=== PATIENT | male | born 1950 | race Caucasian/White ===

== ENCOUNTER 2022-11-23 15:42 | Outpatient (CLI) | payer BC | END 2022-11-23 15:43 | disposition home or self-care (01) | LOC: SCSRAD 15:42 | PROVIDERS: ATTEND Nurse Practitioner Family | DX: R05.3 Chronic cough (principal) | CPT/HCPCS: 71046 ==

== ENCOUNTER 2024-02-25 13:55 | Inpatient (IN) | payer BC, MEDICARE ==
[2024-02-25 15:01] VITALS: BMI 23.3
[2024-02-25] MEDS ORDERED: Ondansetron ODT 4 MG TAB PO PRN (15:07)
[2024-02-25] MEDS ORDERED: Acetaminophen/Codeine 30-300mg Tablet PO PRN (15:07)
[2024-02-25] MEDS ORDERED: Acetaminophen 325 MG TAB PO PRN (15:07)
[2024-02-25] MEDS ORDERED: Acetaminophen 650 MG Suppository PR PRN (15:07)
[2024-02-25] MEDS ORDERED: Ondansetron PF 4 MG/2 ML Vial IVP PRN (15:07)
[2024-02-25] MEDS ORDERED: Morphine 2 MG/ML VIAL SLOW IVP PRN (15:30)
[2024-02-25] MEDS ORDERED: Ipratropium/Albuterol 3 ML NEB NEB PRN (15:50)
[2024-02-25] MEDS: Acetaminophen 325 MG TAB PO SCH ×2 (15:55→16:36)
[2024-02-25] MEDS: cefTRIAXone\\ROCEPHIN 1 GM in Sodium Chloride 0.9% 100 ML IVPB SCH ×2 (15:56→16:35)
[2024-02-25] MEDS: Guaifenesin DM 100-10/5 ML UDCUP PO PRN (15:56)
[2024-02-25] MEDS ORDERED: Azithromycin 500 MG in Sodium Chloride 0.9% 250 ML 250 ML IVPB SCH (16:00)
[2024-02-25] MEDS: Polyethylene Glycol 3350 17 GM Packet PO SCH (16:07)
[2024-02-25] MEDS: Sodium Chloride 0.9% 1,000 ML IV SCH (16:08)
[2024-02-25 16:54] LABS: Influenza A by NAA Not Detected (NotDetected); Influenza B by NAA Not Detected (NotDetected); SARS-CoV-2 NAA Rapid Test Not Detected (NotDetected)
[2024-02-25] MEDS: Azithromycin 500 MG in Sodium Chloride 0.9% 250 ML 250 ML IVPB SCH (17:14)
[2024-02-25] MEDS: Tamsulosin HCl 0.4 MG CAP PO SCH (20:41)
[2024-02-25] MEDS: Senokot S 8.6-50 MG TAB PO SCH (20:41)
[2024-02-26 06:42] LABS: #Basophils 0.03 10x3/uL (0.0-0.2); %Basophils 0.3 % (0.0-1.0); %Eosinophils 2.5 % (0.0-10.0); %Lymphocytes 5.4 % (21.0-51.0); %Monocytes 10.5 % (0.0-10.0); %Neutrophils 80.9 % (42.0-75.0); Hematocrit 37.8 % (42.0-52.0); Hemoglobin 12.7 g/dL (14.0-18.0); Mean Corpuscular HGB CONC 33.6 g/dL (32.0-36.0); Mean Corpuscular Hemoglobin 29.5 pg (27.0-31.0); Mean Corpuscular Volume 87.9 fL (78.0-98.0); Mean Platelet Volume 8.2 fL (7.4-10.4); Platelet Count 424 10x3/uL (130-400); RBC Distribution Width 13.2 % (11.5-14.5)
[2024-02-26 07:00] LABS: ALT (SGPT) 10 U/L (8-55); AST (SGOT) 15 U/L (5-34); Albumin 2.3 g/dL (3.4-4.8); Alkaline Phosphatase 57 U/L (40-110); Anion Gap 12 mmol/L (10-20); BUN (Urea Nitrogen) 13 mg/dL (8.4-25.7); Bilirubin, Total 0.4 mg/dL (0.2-1.2); Calc. Creatinine Clearance 82 mL/min (70-130); Calcium 8.3 mg/dL (7.8-10.44); Carbon Dioxide 23 mmol/L (23-31); Chloride 105 mmol/L (98-107); Estimated GFR 92; Globulin 3.5 g/dL (2.4-3.5); Glucose 148 mg/dL (83-110); Potassium 3.6 mmol/L (3.5-5.1); Protein, Total 5.8 g/dL (5.8-8.1); Sodium 136 mmol/L (136-145)
[2024-02-26] MEDS: Enoxaparin 40 MG (0.4 mL) SYRINGE SC SCH (08:06)
[2024-02-26] MEDS: Polyethylene Glycol 3350 17 GM Packet PO SCH (08:06)
[2024-02-27 05:52] LABS: #Basophils 0.04 10x3/uL (0.0-0.2); %Basophils 0.3 % (0.0-1.0); %Eosinophils 1.5 % (0.0-10.0); %Lymphocytes 7.1 % (21.0-51.0); %Monocytes 9.5 % (0.0-10.0); %Neutrophils 81.2 % (42.0-75.0); Hematocrit 39.4 % (42.0-52.0); Mean Corpuscular Hemoglobin 29.3 pg (27.0-31.0); Mean Corpuscular Volume 88.7 fL (78.0-98.0); Mean Platelet Volume 8.1 fL (7.4-10.4); Platelet Count 476 10x3/uL (130-400); RBC Distribution Width 13.3 % (11.5-14.5); Red Blood Cell (RBC) Count 4.44 mill/uL (4.70-6.10)
[2024-02-27 06:08] LABS: Anion Gap 14 mmol/L (10-20); Calcium 8.7 mg/dL (7.8-10.44); Carbon Dioxide 24 mmol/L (23-31); Chloride 104 mmol/L (98-107); Potassium 4.4 mmol/L (3.5-5.1); Sodium 138 mmol/L (136-145)
[2024-02-27] MEDS ORDERED: EPINEPHrine 1 MG/ML VIAL ONE (06:55)
[2024-02-27] MEDS ORDERED: Bupivacaine PF 0.5% 30 ML VIAL ONE (06:55)
[2024-02-27] MEDS ORDERED: PROPOFOL 20 ML ONE ×3 (06:56→08:24)
[2024-02-27] MEDS ORDERED: Glycopyrrolate 0.2 MG/ML 5 ML SYRINGE ONE (06:56)
[2024-02-27] MEDS ORDERED: PHENYLEPHRINE-NS 100 MCG/ML 10 ML SYRINGE ONE ×2 (06:56→08:17)
[2024-02-27] MEDS ORDERED: Dexamethasone 20 MG/5 ML VIAL ONE (06:56)
[2024-02-27] MEDS ORDERED: Lidocaine 1% PF 5 ML VIAL ONE (06:56)
[2024-02-27] MEDS ORDERED: fentaNYL PF 100 MCG/2 ML SYRINGE ONE ×4 (06:56→10:50)
[2024-02-27] MEDS ORDERED: Rocuronium Bromide 10 MG/ML (10ML VIAL) ONE (06:56)
[2024-02-27] MEDS ORDERED: Ondansetron PF 4 MG/2 ML Vial ONE (06:56)
[2024-02-27 07:43] LABS: ALT (SGPT) 19 U/L (8-55); AST (SGOT) 25 U/L (5-34); Albumin 2.3 g/dL (3.4-4.8); Alkaline Phosphatase 65 U/L (40-110); BUN (Urea Nitrogen) 13 mg/dL (8.4-25.7); Bilirubin, Total 0.4 mg/dL (0.2-1.2); Calc. Creatinine Clearance 86 mL/min (70-130); Estimated GFR 93; Globulin 3.7 g/dL (2.4-3.5); Glucose 95 mg/dL (83-110)
[2024-02-27] MEDS ORDERED: Midazolam HCl 2 mg/2 ml Vial ONE (08:06)
[2024-02-27] MEDS ORDERED: SUGAMMADEX SODIUM 200 MG/2 ML VIAL ONE ×2 (09:44→09:45)
[2024-02-27] MEDS ORDERED: Morphine 4 MG/ML VIAL SLOW IVP PRN (10:03)
[2024-02-27] MEDS ORDERED: traMADol HCl 50 MG TAB PO PRN (10:03)
[2024-02-27] MEDS ORDERED: Promethazine HCl 25 MG/ML VIAL IM PRN (10:03)
[2024-02-27] MEDS ORDERED: fentaNYL 50 mcg/mL 1 mL Vial SLOW IVP PRN (10:03)
[2024-02-27] MEDS ORDERED: fentaNYL 50 mcg/mL 1 mL Vial ONE (11:12)
[2024-02-27] MEDS: Ipratropium/Albuterol 3 ML NEB NEB SCH (13:45)
[2024-02-27 13:52] LABS: Fluid, Triglycerides 39 mg/dL (Not Available); Pleural Fluid, Amylase 35 U/L (Not Available); Pleural Fluid, Glucose Less than 20 mg/dL; Pleural Fluid, LDH 963 U/L (Not Available); Pleural Fluid, Protein 4.1 g/dL
[2024-02-27] MEDS: CEFAZOLIN 2 GM in Sodium Chloride 0.9% 100 ML IVPB SCH (13:54)
[2024-02-27] MEDS: Acetaminophen/Codeine 30-300mg Tablet PO PRN (14:28)
[2024-02-27 14:39] LABS: RBC Count-Automated (BF) 3618 /cu.mm; WBC/Nucleated-Auto (BF) 2824 /cu.mm
[2024-02-27 16:13] LABS: BF Color Yellow; Body Fluid Source Thoracentesis Fluid; Clarity Hazy (Clear); Tube # EDTA
[2024-02-27 16:17] LABS: BF Segmented Neutrophils 80 %; Cell Count Non Hematic 4 %; Eosinophils 2 %; Lymphocytes 14 %
[2024-02-27] MEDS: Vancomycin (BATCH) 2 GM in Premix 1 BAG IVPB SCH (16:17)
[2024-02-27] MEDS: guaiFENesin ER 600 MG TAB PO SCH (20:09)
[2024-02-27 20:58] LABS: Strep pneumo Urine Ag NEGATIVE (NEGATIVE)
[2024-02-27] MEDS ORDERED: Azithromycin 500 MG in Sodium Chloride 0.9% 250 ML 250 ML IVPB SCH (21:00)
[2024-02-28 05:48] LABS: #Basophils Less than 0.03 10x3/uL (0.0-0.2); #Eosinophils Less than 0.03 10x3/uL (0.0-0.7); %Basophils 0.2 % (0.0-1.0); %Monocytes 9.4 % (0.0-10.0); %Neutrophils 85.8 % (42.0-75.0); Hematocrit 35.2 % (42.0-52.0); Hemoglobin 11.5 g/dL (14.0-18.0); Mean Corpuscular HGB CONC 32.7 g/dL (32.0-36.0); Mean Corpuscular Hemoglobin 29.1 pg (27.0-31.0); Mean Corpuscular Volume 89.1 fL (78.0-98.0); Platelet Count 460 10x3/uL (130-400); RBC Distribution Width 13.3 % (11.5-14.5); Red Blood Cell (RBC) Count 3.95 mill/uL (4.70-6.10)
[2024-02-28 06:01] LABS: ALT (SGPT) 14 U/L (8-55); AST (SGOT) 17 U/L (5-34); Albumin 2.1 g/dL (3.4-4.8); Alkaline Phosphatase 58 U/L (40-110); Anion Gap 11 mmol/L (10-20); BUN (Urea Nitrogen) 13 mg/dL (8.4-25.7); Bilirubin, Total 0.2 mg/dL (0.2-1.2); Calc. Creatinine Clearance 81 mL/min (70-130); Calcium 8.4 mg/dL (7.8-10.44); Carbon Dioxide 24 mmol/L (23-31); Chloride 106 mmol/L (98-107); Estimated GFR 91; Globulin 3.6 g/dL (2.4-3.5); Glucose 133 mg/dL (83-110); Potassium 3.9 mmol/L (3.5-5.1); Protein, Total 5.7 g/dL (5.8-8.1); Sodium 137 mmol/L (136-145)
[2024-02-28 06:04] LABS: Vancomycin, Random 12.2 ug/mL (See Comment)
[2024-02-28] MEDS: Vancomycin 1 GM in Premix 1 BAG IVPB SCH (06:29)
[2024-02-28] MEDS: Enoxaparin 40 MG (0.4 mL) SYRINGE SC SCH (08:43)
[2024-02-28] MEDS: Sodium Chloride 0.9% 100 ML ONE (17:05)
[2024-02-28] MEDS: cefTRIAXone\\ROCEPHIN 2 GM in Sodium Chloride 0.9% 100 ML IVPB SCH ×2 (17:09→18:02)
[2024-02-28] MEDS: Polyethylene Glycol 3350 17 GM Packet PO SCH (21:17)
[2024-02-29 06:39] LABS: #Basophils 0.03 10x3/uL (0.0-0.2); %Basophils 0.3 % (0.0-1.0); %Eosinophils 3.1 % (0.0-10.0); %Monocytes 10.1 % (0.0-10.0); %Neutrophils 73.1 % (42.0-75.0); Hematocrit 33.3 % (42.0-52.0); Hemoglobin 11.2 g/dL (14.0-18.0); Mean Corpuscular HGB CONC 33.6 g/dL (32.0-36.0); Mean Corpuscular Hemoglobin 29.2 pg (27.0-31.0); Mean Corpuscular Volume 86.7 fL (78.0-98.0); Platelet Count 472 10x3/uL (130-400); RBC Distribution Width 13.2 % (11.5-14.5); Red Blood Cell (RBC) Count 3.84 mill/uL (4.70-6.10)
[2024-02-29 06:57] LABS: ALT (SGPT) 20 U/L (8-55); AST (SGOT) 26 U/L (5-34); Albumin 2.1 g/dL (3.4-4.8); Alkaline Phosphatase 52 U/L (40-110); Anion Gap 11 mmol/L (10-20); BUN (Urea Nitrogen) 12 mg/dL (8.4-25.7); Bilirubin, Total 0.2 mg/dL (0.2-1.2); Calc. Creatinine Clearance 90 mL/min (70-130); Calcium 8.2 mg/dL (7.8-10.44); Carbon Dioxide 24 mmol/L (23-31); Chloride 106 mmol/L (98-107); Estimated GFR 94; Globulin 3.4 g/dL (2.4-3.5); Glucose 110 mg/dL (83-110); Potassium 3.3 mmol/L (3.5-5.1); Protein, Total 5.5 g/dL (5.8-8.1); Sodium 138 mmol/L (136-145)
[2024-02-29] MEDS: Citalopram 20 MG TAB PO SCH (08:16)
[2024-02-29] MEDS: Potassium Chloride 20 MEQ TAB PO SCH (09:50)
[2024-03-01] MEDS ORDERED: Potassium Chloride 20 MEQ TAB PO SCH (08:45)
[2024-03-01] MEDS: Senokot 8.6 MG TAB PO PRN (09:04)
[2024-03-01] MEDS: Sodium Chloride 0.65% Nasal 44 ML BOT EA NARE PRN (09:04)
[2024-03-01] MEDS: metroNIDAZOLE 500 MG in Premix 1 BAG IVPB SCH (18:04)
[2024-03-02 11:08] VITALS: BP 111/67; TEMP 97.9
== END 2024-03-02 11:37 | disposition home or self-care (01) | DRG 163 ==
LOC: T4-B 14:41
PROVIDERS: ADMIT Internal Medicine; ATTEND Internal Medicine
PROC: 0W994ZZ Drainage of Right Pleural Cavity, Percutaneous Endoscopic Approach (ICD-10-PCS; principal; 2024-02-27)
PROC: 0BNK4ZZ Release Right Lung, Percutaneous Endoscopic Approach (ICD-10-PCS; 2024-02-27)
PROC: 0BJ08ZZ Inspection of Tracheobronchial Tree, Via Natural or Artificial Opening Endoscopic (ICD-10-PCS; 2024-02-27)
PROC: 3E033XZ Introduction of Vasopressor into Peripheral Vein, Percutaneous Approach (ICD-10-PCS; 2024-02-27)
DX: J86.9 Pyothorax without fistula (principal); J18.9 Pneumonia, unspecified organism; N40.0 Benign prostatic hyperplasia without lower urinary tract symptoms; F32.A Depression, unspecified; Z98.890 Other specified postprocedural states; Z79.899 Other long term (current) drug therapy; Z66 Do not resuscitate
CPT/HCPCS: 36415; 71045; 71275; 80053; 80202; 82150; 82945; 83615; 84145; 84157; 84478; 84484; 85025; 85060; 86850; 86900; 86901; 87070; 87081; 87102; 87116; 87205; 87206; 87449; 88112; 88305; 89051; 93005; 94640; J0171; J0456; J0665; J0696; J1100; J1650; J2250; J2405; J2704; J3010; J3370; J3370-JW; J7030; J7050; J7620; Q9967

== ENCOUNTER 2024-03-20 08:59 | Outpatient (CLI) | payer BC, MEDICARE | END 2024-03-20 09:00 | disposition home or self-care (01) | LOC: RAD 08:59 | PROVIDERS: ATTEND Student in an Organized Health Care Education/Training Program | DX: J90 Pleural effusion, not elsewhere classified (principal); J98.4 Other disorders of lung | CPT/HCPCS: 71046 ==

== ENCOUNTER 2024-04-22 15:26 | Outpatient (CLI) | payer BC, MEDICARE | END 2024-04-22 15:27 | disposition home or self-care (01) | LOC: RAD 15:26 | PROVIDERS: ATTEND Internal Medicine | DX: J86.9 Pyothorax without fistula (principal); J90 Pleural effusion, not elsewhere classified | CPT/HCPCS: 71046 ==